=== PATIENT | male | born 2000 | race Caucasian/White ===

== ENCOUNTER 2022-09-13 21:08 | Emergency (ER) | payer BC, SELFPAY ==
[~2022-09-13 21:08] MED LIST: Iopamidol 300 61% 100 ML VIAL FS ONE
[2022-09-13] MEDS ORDERED: Lidocaine Viscous Sol 2% 15 ml UD Cup ONE (22:07)
[2022-09-13] MEDS ORDERED: Dexamethasone 10 MG/ML VIAL ONE ×2 (22:07→23:46)
[2022-09-13] MEDS ORDERED: Lidocaine 1% w/Epinephrine 1:100K 20 ML VIAL ONE (23:18)
[2022-09-13] MEDS ORDERED: Ampicillin/Sulbactam 3 GM in Sodium Chloride 0.9% 100 ML IVPB ONE (23:45)
== END 2022-09-14 01:04 | disposition home or self-care (01) ==
LOC: CSHERS 21:08
DX: J36 Peritonsillar abscess (principal)
CPT/HCPCS: 70491; 96365; 96372; J0295; J1100; J3490; Q9967